=== PATIENT | female | born 1960 | race Caucasian/White ===

== ENCOUNTER 2022-12-29 15:37 | Inpatient (IN) | payer MEDICARE, MEDICAID ==
[~2022-12-29] VITALS: Ht 162.5 cm; Wt 101.9 kg
[2022-12-29 16:14] LABS: BASOPHILS # (AUTO) 0.1 10^3/uL (0.0-0.1); BASOPHILS % (AUTO) 0 % (0-10); EOSINOPHILS % (AUTO) 0 % (0-10); HEMATOCRIT 36 % (35-52); HEMOGLOBIN 11.8 g/dL (11.5-16.0); LYMPHOCYTES # (AUTO) 1.6 10^3/uL (1.0-4.0); LYMPHOCYTES % (AUTO) 8 % (12-44); MEAN CORPUSCULAR HEMOGLOBIN 29 pg (25-34); MEAN CORPUSCULAR HGB CONC 33 g/dL (32-36); MEAN CORPUSCULAR VOLUME 89 fL (80-99); MEAN PLATELET VOLUME 9.6 fL (9.0-12.2); MONOCYTES # (AUTO) 1.5 10^3/uL (0.0-1.0); MONOCYTES % (AUTO) 7 % (0-12); NEUTROPHILS # (AUTO) 17.7 10^3/uL (1.8-7.8); NEUTROPHILS % (AUTO) 85 % (42-75); PLATELET COUNT 248 10^3/uL (130-400)
--- NOTE | 2022-12-29 16:17 | ED General ---
General Chief Complaint: - Reproductive Stated Complaint: UNABLE TO URINATE Nursing Triage Note: PT TO RM 10 PT CO OF FEVERS LAST PM, PT STATES HAS NOT VOIDED SINCE 0730 THIS AM. Source of Information: Patient Exam Limitations: No Limitations History of Present Illness Date Seen by Provider: Dec 29, 2022 Time Seen by Provider: 16:05 Initial Comments This 62 year old woman presents to the ER with primary complaint of not being able to void since this morning. She is noted to have a distended and tender abdomen. She states this sometimes happens when "my lupus flares up." She has experienced chills with no fever. She has recently moved to the area and her care providers are in [place]. Shortly after assessment she is noted to have O2 sat at 88% on room air. She normally uses O2 at 2 lpm at night for TONY but does not require it during the day. Bladder scan revealed greater than 550 ml of retained urine. Allergies and Home Medications Allergies Coded Allergies: Penicillins (Verified Allergy, Unknown, 12/29/22) Sulfa (Sulfonamide Antibiotics) (Verified Allergy, Unknown, 12/29/22) morphine (Verified Allergy, Unknown, 12/29/22) Patient Home Medication List Home Medication List Reviewed: Yes Acetaminophen (Tylenol Extra Strength) 500 Mg Tablet, 1,000 MG PO Q8H PRN for PAIN-MILD (1-4), (Reported) Entered as Reported by: CARLOS PITTMAN on 12/30/22 1205 Last Action: Held Amitriptyline HCl (Amitriptyline HCl) 25 Mg Tablet, 25 MG PO HS, (Reported) Entered as Reported by: CARLOS PITTMAN on 12/30/22 1152 Last Action: Continued Atorvastatin Calcium (Atorvastatin Calcium) 20 Mg Tablet, 20 MG PO HS, (Reported) Entered as Reported by: CARLOS PITTMAN on 12/30/22 1151 Last Action: Continued Brinzolamide/Brimonidine Tart (Simbrinza 1%-0.2% Eye Drop) 1 %-0.2 % Drops.susp, 1 DROP OU BID, (Reported) Entered as Reported by: CARLOS PITTMAN on 12/30/22 1151 Last Action: Converted Cefdinir (Cefdinir) 300 Mg Capsule, 300 MG PO BID Prescribed by: ARMINDA VIDALES on 12/31/22 1119 Chromium/Herbal Complex No.238 (Green Tea Caplet) 250 Mcg-775 Mg Tablet, 1 EACH PO DAILY, (Reported) Entered as Reported by: CARLOS PITTMAN on 12/30/22 120 Last Action: Held Dapagliflozin Propanediol (Farxiga) 5 Mg Tablet, 5 MG PO DAILY, (Reported) Entered as Reported by: CARLOS PITTMAN on 12/30/22 115 Last Action: Held Dexlansoprazole (Dexlansoprazole Dr) 60 Mg Cap.dr.bp, 60 MG PO DAILY, (Reported) Entered as Reported by: CARLOS PITTMAN on 12/30/221150 Last Action: Converted Docusate Sodium (Stool Softener) 100 Mg Tablet, 200 MG PO DAILY PRN for CONSTIPATION-1ST LINE, (Reported) Entered as Reported by: CARLOS PITTMAN on 12/30/22 120 Last Action: Held Doxycycline Hyclate (Doxycycline Hyclate) 100 Mg Capsule, 100 MG PO BID Prescribed by: ARMINDA VIDALES on 12/31/22 111 Dulaglutide (Trulicity) 3 Mg/0.5 Ml Pen.injctr, 3 MG SQ FRIDAY, (Reported) Entered as Reported by: CARLOS PITTMAN on 12/30/22 114 Last Action: Held Estradiol (Estradiol) 0.01 % Cream.appl, 1 APPFUL PV HS, (Reported) Entered as Reported by: CARLOS PITTMAN on 12/30/221150 Last Action: Continued Fluticasone Propionate (Fluticasone Propionate) 50 Mcg/Actuation Irwin.susp, 1 SPRAY NSEACH DAILY PRN for CONGESTION, (Reported) Entered as Reported by: CARLOS PITTMAN on 12/30/22 115 Last Action: Held Furosemide (Furosemide) 40 Mg Tablet, 40 MG PO DAILY, (Reported) Entered as Reported by: CAROLS PITTMAN on 12/30/22 115 Last Action: Held Gabapentin (Neurontin) 300 Mg Capsule, 300 MG PO DAILY, (Reported) Entered as Reported by: CARLOS PITTMAN on 12/30/22 114 Last Action: Continued Gabapentin (Neurontin) 300 Mg Capsule, 600 MG PO HS, (Reported) Entered as Reported by: CARLOS PITTMAN on 12/30/22 114 Last Action: Continued Hydrocodone/Acetaminophen (Hydrocodone-Acetamin 10-325 mg) 10 Mg-325 Mg Tablet, 1 EA PO TID PRN for PAIN-MODERATE (5-7), (Reported) Entered as Reported by: CARLOS PITTMAN on 12/30/22 114 Last Action: Held Hydroxychloroquine Sulfate (Hydroxychloroquine Sulfate) 200 Mg Tablet, 200 MG PO DAILY, (Reported) Entered as Reported by: CARLOS PITTMAN on 12/30/221150 Last Action: Held Ketorolac Tromethamine (Ketorolac Tromethamine) 10 Mg Tablet, 10 MG PO DAILY PRN for PAIN, (Reported) Entered as Reported by: CARLOS PITTMAN on 12/30/221150 Last Action: Held Lactobacillus Acidophilus (Probiotic) 10 Billion Cell Capsule, 1 EACH PO DAILY, (Reported) Entered as Reported by: CARLOS PITTMAN on 12/30/221202 Last Action: Held Latanoprost (Xalatan) 0.005 % Drops, 1 DROP OU DAILY, (Reported) Entered as Reported by: CARLOS PITTMAN on 12/30/221150 Last Action: Continued Linaclotide (Linzess) 72 Mcg Capsule, 72 MG PO DAILY, (Reported) Entered as Reported by: CARLOS PITTMAN on 12/30/221150 Last Action: Converted Metformin HCl (Metformin HCl ER) 500 Mg Tab.er.24, 500 MG PO HS, (Reported) Entered as Reported by: CARLOS PITTMAN on 12/30/221150 Last Action: Held Multivitamin (Multivitamin) 1 Each Tablet, 1 EACH PO DAILY, (Reported) Entered as Reported by: CARLOS PITTMAN on 12/30/22 120 Last Action: Held Nifedipine (Nifedipine ER) 60 Mg Tablet.er, 60 MG PO DAILY, (Reported) Entered as Reported by: CARLOS PITTMAN on 12/30/221150 Last Action: Converted Omeprazole (Omeprazole) 20 Mg Tablet.dr, 20 MG PO HS, (Reported) Entered as Reported by: CARLOS PITTMAN on 12/30/22 120 Last Action: Held Vibegron (Gemtesa) 75 Mg Tablet, 75 MG PO DAILY, (Reported) Entered as Reported by: CARLOS PITTMAN on 12/30/221152 Last Action: Held Review of Systems Review of Systems Constitutional: see HPI EENTM: no symptoms reported Respiratory: see HPI Cardiovascular: no symptoms reported Gastrointestinal: see HPI Genitourinary: no symptoms reported : No Musculoskeletal: no symptoms reported Skin: no symptoms reported Psychiatric/Neurological: No Symptoms Reported Hematologic/Lymphatic: No Symptoms Reported Immunological/Allergic: no symptoms reported Past Ryxfozp-Ubhewk-Zmlazr Hx Patient Social History Tobacco Use?: No Smoking Status: Former Smoker Substance use?: No Alcohol Use?: No Pt feels they are or have been: No Immunizations Up To Date Influenza Vaccine Up-to-Date: No; Not Current First/Initial COVID19 Vaccinat: YES Second COVID19 Vaccination Herbie: YES Third COVID19 Vaccination Date: YES Past Medical History Surgery/Hospitalization HX: LUPUS, IBS, FREQUENT UTI, HYST, R TKR Surgeries: Yes Abdominal (ectopic ), Appendectomy, Gallbladder, Hysterectomy, Joint Replacement (knee) Respiratory: Yes Sleep Apnea Cardiac: No Neurological: No : No Reproductive Disorders: No Genitourinary: Yes Renal Failure (CKD) Gastrointestinal: Yes Irritable Bowel Musculoskeletal: Yes Degenerate Disk Disease, Chronic Back Pain Endocrine: Yes Diabetes, Non-Insulin dep, Lupus HEENT: No Cancer: No Psychosocial: No Physical Exam Vital Signs Vital Signs - First Documented 12/29/22 12/29/22 15:45 17:00 Temp 36.3 Pulse 97 Resp 16 B/P (MAP) 122/73 (89) Pulse Ox 94 O2 Delivery Nasal Cannula O2 Flow Rate 2.00 Capillary Refill : Less Than 3 Seconds Height, Weight, BMI Height: '" Weight: lbs. oz. kg; 38.00 BMI Method: General Appearance: WD/WN, Mild Distress, Obese HEENT: PERRL/EOMI, Normal ENT Inspection Neck: Normal Inspection Respiratory: Lungs Clear, No Accessory Muscle Use, No Respiratory Distress, Decreased Breath Sounds Cardiovascular: Regular Rate, Rhythm, No Edema, No Murmur Gastrointestinal: Normal Bowel Sounds, Soft, Distended, Tenderness (upper abdomen) Extremity: Normal Inspection, No Pedal Edema Neurologic/Psychiatric: Alert, Oriented x3, No Motor/Sensory Deficits, Normal Mood/Affect Skin: Normal Color, Warm/Dry Focused Exam Lactate Level 12/29/22 18:10: Lactic Acid Level 1.01 Lactic Acid Level Laboratory Tests Test 12/29/22 18:10 Lactic Acid Level 1.01 MMOL/L (0.50-2.00) Progress/Results/Core Measures Suspected Sepsis SIRS Temperature: Pulse: 97 Respiratory Rate: 16 Laboratory Tests 12/29/22 16:00: White Blood Count 21.0H Blood Pressure 122 /73 Mean: 89 12/29/22 18:10: Lactic Acid Level 1.01 Laboratory Tests 12/29/22 16:00: Creatinine 1.99H, INR Comment 1.1, Platelet Count 248, Total Bilirubin 0.8 Results/Orders Lab Results Laboratory Tests Test 12/29/22 16:00 12/29/22 16:25 12/29/22 18:10 Range/Units White Blood Count 21.0 H 4.3-11.0 10^3/uL Red Blood Count 4.10 3.80-5.11 10^6/uL Hemoglobin 11.8 11.5-16.0 g/dL Hematocrit 36 35-52 % Mean Corpuscular Volume 89 80-99 fL Mean Corpuscular Hemoglobin 29 25-34 pg Mean Corpuscular Hemoglobin Concent 33 32-36 g/dL Red Cell Distribution Width 13.5 10.0-14.5 % Platelet Count 248 130-400 10^3/uL Mean Platelet Volume 9.6 9.0-12.2 fL Immature Granulocyte % (Auto) 1 % Neutrophils (%) (Auto) 85 H 42-75 % Lymphocytes (%) (Auto) 8 L 12-44 % Monocytes (%) (Auto) 7 0-12 % Eosinophils (%) (Auto) 0 0-10 % Basophils (%) (Auto) 0 0-10 % Neutrophils # (Auto) 17.7 H 1.8-7.8 10^3/uL Lymphocytes # (Auto) 1.6 1.0-4.0 10^3/uL Monocytes # (Auto) 1.5 H 0.0-1.0 10^3/uL Eosinophils # (Auto) 0.0 0.0-0.3 10^3/uL Basophils # (Auto) 0.1 0.0-0.1 10^3/uL Immature Granulocyte # (Auto) 0.1 0.0-0.1 10^3/uL Neutrophils % (Manual) 80 % Lymphocytes % (Manual) 11 % Monocytes % (Manual) 9 % Blood Morphology Comment NORMAL Prothrombin Time 14.2 12.2-14.7 SEC INR Comment 1.1 0.8-1.4 Activated Partial Thromboplast Time 30 24-35 SEC Sodium Level 139 135-145 MMOL/L Potassium Level 3.5 L 3.6-5.0 MMOL/L Chloride Level 101 98-107 MMOL/L Carbon Dioxide Level 26 21-32 MMOL/L Anion Gap 12 5-14 MMOL/L Blood Urea Nitrogen 26 H 7-18 MG/DL Creatinine 1.99 H 0.60-1.30 MG/DL Estimat Glomerular Filtration Rate 28 BUN/Creatinine Ratio 13 Glucose Level 124 H 70-105 MG/DL Calcium Level 9.1 8.5-10.1 MG/DL Corrected Calcium 8.9 8.5-10.1 MG/DL Total Bilirubin 0.8 0.1-1.0 MG/DL Aspartate Amino Transf (AST/SGOT) 19 5-34 U/L Alanine Aminotransferase (ALT/SGPT) 19 0-55 U/L Alkaline Phosphatase 74 40-136 U/L C-Reactive Protein High Sensitivity 6.62 H 0.00-0.50 MG/DL Total Protein 7.7 6.4-8.2 GM/DL Albumin 4.3 3.2-4.5 GM/DL Lipase 14 8-78 U/L Urine Color YELLOW Urine Clarity CLEAR Urine pH 6.0 5-9 Urine Specific [place] <=1.005 1.016-1.022 Urine Protein NEGATIVE NEGATIVE Urine Glucose (UA) 3+ H NEGATIVE Urine Ketones NEGATIVE NEGATIVE Urine Nitrite NEGATIVE NEGATIVE Urine Bilirubin NEGATIVE NEGATIVE Urine Urobilinogen 0.2 < = 1.0 MG/DL Urine Leukocyte Esterase NEGATIVE NEGATIVE Urine RBC (Auto) NEGATIVE NEGATIVE Urine RBC NONE /HPF Urine WBC NONE /HPF Urine Crystals NONE /LPF Urine Bacteria NEGATIVE /HPF Urine Casts NONE /LPF Urine Mucus NEGATIVE /LPF Urine Culture Indicated NO Lactic Acid Level 1.01 0.50-2.00 MMOL/L Micro Results Microbiology 12/29/22 Blood Culture - Preliminary, Resulted No growth My Orders Orders - SANCHEZ FREY MD Cbc With Automated Diff (12/29/22 16:01) Comprehensive Metabolic Panel (12/29/22 16:01) Hs C Reactive Protein (12/29/22 16:01) Ua Culture If Indicated (12/29/22 16:01) Ed Iv/Invasive Line Start (12/29/22 16:01) Lipase (12/29/22 16:15) Garcia Cath (12/29/22 16:15) Manual Differential (12/29/22 16:00) Ct Chest/Abdomen/Pelvis Wo (12/29/22 17:07) Blood Culture (12/29/22 18:00) Sputum Culture (12/29/22 18:00) Protime With Inr (12/29/22 18:00) Partial Thromboplastin Time (12/29/22 18:00) Vital Signs Adult Sepsis Patie Q15M (12/29/22 18:00) O2 (12/29/22 18:00) Remove Rings In Anticipation O (12/29/22 18:00) Lactic Acid Analyzer (12/29/22 18:00) Ceftriaxone Pre-Mix (Rocephin Pre-Mix) (12/29/22 18:00) Vital Signs/I&O 12/29/22 12/29/22 15:45 17:00 Temp 36.3 Pulse 97 Resp 16 B/P (MAP) 122/73 (89) Pulse Ox 94 95 O2 Delivery Nasal Cannula O2 Flow Rate 2.00 Capillary Refill : Less Than 3 Seconds Blood Pressure Mean: 89 Progress Note : Progress Note Garcia catheter was placed which relieved urinary retention. Labs were obtained, reviewed and interpreted by me. She had leukocytosis of 21,000 and CRP of 6. Further work-up was sought. CT of the chest, abdomen and pelvis was obtained to further evaluate her pain and hypoxia. CT revealed multilobar right-sided pneumonia. Lactic acid and blood cultures were obtained. Antibiotic therapy with Rocephin was administered. Case was discussed with the hospitalist, Dr. Kevin, and patient was admitted. I discussed CODE STATUS with patient, and she elected a DNR. Diagnostic Imaging Diagonstic Imaging: CT Plain Films/CT/US/NM/MRI: chest, abdomen, pelvis Comments CT chest, abdomen and pelvis was reviewed and interpreted by me. There was obvious pneumonia in the right lung. No bowel obstruction was identified. No other acute abnormalities were appreciated. Radiologist's report was also reviewed as below: NAME: FRANCHESKA HEREDIA [facility] REC#: [id number] PT STATUS: REG ER : 1960 PHYSICIAN: SANCHEZ FREY MD ADMIT DATE: 06/04/23/ER Signed Date of Exam:12/29/22 CT CHEST/ABDOMEN/PELVIS WO Procedure: CT chest, abdomen, and pelvis without contrast. Technique: Multiple contiguous axial images were obtained through the chest, abdomen, and pelvis without the use of intravenous contrast. Auto Exposure Controls were utilized during the CT exam to meet ALARA standards for radiation dose reduction. Date: December 29, 2022. Indication: 62-year-old female, fever. Not voided. Abdominal distention. Chest pain. Shortness of breath. Comparison: None. Findings: There is a 5 mm subcutaneous solid right upper lobe pulmonary nodule on axial image 19. There is patchy multifocal airspace consolidation in the right upper lobe, right middle lobe, and right lower lobe with areas of tree-in-bud type nodularity. There is a 5 mm solid left lower lobe pulmonary nodule on axial image 47. There is an additional 4 mm more inferiorly located left lower lobe pulmonary nodule. There is no identified pneumothorax. There is no pleural effusion. The central airways are patent. The heart is not enlarged. There is no identified pericardial effusion. There is no identified abnormally enlarged mediastinal, hilar, or axillary lymph node meeting CT size criteria for adenopathy. The liver is unremarkable in size and contour. The gallbladder is surgically absent. There is no biliary ductal dilation. There is a small duodenal diverticulum near the duodenal insertion of the common bile duct. There is no biliary ductal dilation. The pancreas is unremarkable. The spleen is normal in size. There is a left adrenal nodule measuring 2.6 cm size on axial image 107 with internal attenuation of 14 Hounsfield units. This is not quite meeting threshold criteria for diagnosis of adenoma. There is also a right adrenal 8 mm nodule on axial image 100 with internal attenuation of 1 Hounsfield unit which is compatible with adrenal adenoma. Noncontrast evaluation of the renal parenchyma is unremarkable. The urinary collecting systems are not distended. There is no renal or ureteral stone. There is a Garcia catheter in the urinary bladder which is collapsed and otherwise not well evaluated. The uterus is not seen and may be surgically absent. There is diverticulosis without evidence of acute diverticulitis. The intestinal tract is not distended. There is no evidence of acute appendicitis. There is no free intraperitoneal air. There is no drainable fluid collection. There is no free fluid in the abdomen or pelvis. There are atherosclerotic calcifications. There is no identified abnormally enlarged lymph node in the abdomen or pelvis which meets CT size criteria for adenopathy. There are multilevel degenerative changes of the spine. There is no identified acute bony abnormality. Impression: 1. Multifocal airspace consolidation in the right lung most likely reflecting multifocal pneumonia. 2. Subcentimeter right upper lobe and left lower lobe pulmonary nodules measuring up to approximately 5 mm in size. Recommend followup CT chest without contrast in 6 months to evaluate for stability. 3. No identified acute abnormality in the abdomen or pelvis. Dictated by: Dictated on workstation # [id number] Dict: 12/29/221735 Trans: 12/29/221749 CV [id number] Interpreted by: VLADIMIR SINCLAIR MD Electronically signed by: VLADIMIR SINCLAIR MD 12/29/221749 Departure Communication (Admissions) Time/Spoke to Admitting Phy: 18:10 Dr. Kevin Impression Primary Impression: Pneumonia Qualified Codes: J18.9 - Pneumonia, unspecified organism Additional Impressions: Hypoxia Urinary retention Disposition: ADMITTED INPATIENT Condition: Stable Admissions Decision to Admit Reason: Admit from ER (General) Decision to Admit/Date: Dec 29, 2022 Time/Decision to Admit Time: 18:10 Departure-Patient Inst. Referrals: NO,LOCAL PHYSICIAN (PCP/Family) Primary Care Physician Scripts Doxycycline Hyclate (Doxycycline Hyclate) 100 Mg Capsule 100 MG PO BID for 5 Days, #10 CAP Prov: ARMINDA VIDALES MD 12/31/22 Cefdinir (Cefdinir) 300 Mg Capsule 300 MG PO BID for 5 Days, #10 CAP Prov: ARMINDA VIDALES MD 12/31/22 SANCHEZ FREY MD Dec 29, 2022 16:17
[2022-12-29 16:23] LABS: ALBUMIN 4.3 GM/DL (3.2-4.5); POTASSIUM 3.5 MMOL/L (3.6-5.0)
[2022-12-29 16:24] LABS: CALCIUM 9.1 MG/DL (8.5-10.1)
[2022-12-29 16:26] LABS: TOTAL PROTEIN 7.7 GM/DL (6.4-8.2)
[2022-12-29 16:27] LABS: BILIRUBIN,TOTAL 0.8 MG/DL (0.1-1.0)
[2022-12-29 16:29] LABS: CREATININE SERUM 1.99 MG/DL (0.60-1.30)
[2022-12-29 16:38] LABS: BILIRUBIN,URINE NEGATIVE (NEGATIVE); CLARITY,URINE CLEAR; COLOR,URINE YELLOW; GLUCOSE, URINE (UA) 3+ (NEGATIVE); KETONES,URINE NEGATIVE (NEGATIVE); LEUKOCYTE ESTERASE ,URINE NEGATIVE (NEGATIVE); NITRITE,URINE NEGATIVE (NEGATIVE); PROTEIN,URINE NEGATIVE (NEGATIVE)
[2022-12-29 16:42] LABS: LYMPHOCYTES % (MANUAL) 11 %; MONOCYTES % (MANUAL) 9 %; NEUTROPHILS % (MANUAL) 80 %; RBC MORPH NORMAL
[2022-12-29 16:55] LABS: BACTERIA,URINE NEGATIVE /HPF
--- NOTE | 2022-12-29 17:46 | Diagnostic Imaging Report ---
Procedure: CT chest, abdomen, and pelvis without contrast. Technique: Multiple contiguous axial images were obtained through the chest, abdomen, and pelvis without the use of intravenous contrast. Auto Exposure Controls were utilized during the CT exam to meet ALARA standards for radiation dose reduction. Date: December 29, 2022. Indication: 62-year-old female, fever. Not voided. Abdominal distention. Chest pain. Shortness of breath. Comparison: None. Findings: There is a 5 mm subcutaneous solid right upper lobe pulmonary nodule on axial image 19. There is patchy multifocal airspace consolidation in the right upper lobe, right middle lobe, and right lower lobe with areas of tree-in-bud type nodularity. There is a 5 mm solid left lower lobe pulmonary nodule on axial image 47. There is an additional 4 mm more inferiorly located left lower lobe pulmonary nodule. There is no identified pneumothorax. There is no pleural effusion. The central airways are patent. The heart is not enlarged. There is no identified pericardial effusion. There is no identified abnormally enlarged mediastinal, hilar, or axillary lymph node meeting CT size criteria for adenopathy. The liver is unremarkable in size and contour. The gallbladder is surgically absent. There is no biliary ductal dilation. There is a small duodenal diverticulum near the duodenal insertion of the common bile duct. There is no biliary ductal dilation. The pancreas is unremarkable. The spleen is normal in size. There is a left adrenal nodule measuring 2.6 cm size on axial image 107 with internal attenuation of 14 Hounsfield units. This is not quite meeting threshold criteria for diagnosis of adenoma. There is also a right adrenal 8 mm nodule on axial image 100 with internal attenuation of 1 Hounsfield unit which is compatible with adrenal adenoma. Noncontrast evaluation of the renal parenchyma is unremarkable. The urinary collecting systems are not distended. There is no renal or ureteral stone. There is a Garcia catheter in the urinary bladder which is collapsed and otherwise not well evaluated. The uterus is not seen and may be surgically absent. There is diverticulosis without evidence of acute diverticulitis. The intestinal tract is not distended. There is no evidence of acute appendicitis. There is no free intraperitoneal air. There is no drainable fluid collection. There is no free fluid in the abdomen or pelvis. There are atherosclerotic calcifications. There is no identified abnormally enlarged lymph node in the abdomen or pelvis which meets CT size criteria for adenopathy. There are multilevel degenerative changes of the spine. There is no identified acute bony abnormality. Impression: 1. Multifocal airspace consolidation in the right lung most likely reflecting multifocal pneumonia. 2. Subcentimeter right upper lobe and left lower lobe pulmonary nodules measuring up to approximately 5 mm in size. Recommend followup CT chest without contrast in 6 months to evaluate for stability. 3. No identified acute abnormality in the abdomen or pelvis. Dictated by: Dictated on workstation # [id number]
[2022-12-29] MEDS ORDERED: cefTRIAXone PRE-MIX 50 ML IV STA (18:00)
[2022-12-29 18:14] LABS: INR 1.1 (0.8-1.4); PROTHROMBIN TIME PATIENT 14.2 SEC (12.2-14.7)
[2022-12-29] MEDS ORDERED: LACTATED RINGERS 1,000 ML IV ONE (19:33)
[2022-12-29 19:39] VITALS: BP 159/85
[2022-12-29 19:42] VITALS: BP 159/85
[2022-12-29] MEDS ORDERED: RT-ALBUTEROL/IPRATROPIUM 3 ML (DUONEB) VIAL INH PRN (20:00)
[2022-12-29] MEDS ORDERED: AZITHROMYCIN 500 MG/NS 250 ML IVPB IV ONE ×2 (20:45)
[2022-12-29] MEDS ORDERED: ONDANSETRON 4 MG/2 ML (SDV) Z0FRAN IV PRN (20:45)
[2022-12-29] MEDS: ENOXAPARIN 40 MG/0.4 ML (LOVENOX) SYR SC SCH (21:04)
[2022-12-29] MEDS: LACTATED RINGERS 1,000 ML IV SCH (21:04)
[2022-12-30 00:24] VITALS: BP 119/69
[2022-12-30 04:20] VITALS: BP 133/60
[2022-12-30] MEDS: LACTATED RINGERS 1,000 ML IV SCH ×3 (04:47→22:16)
[2022-12-30 08:02] VITALS: BP 135/74
[2022-12-30 08:48] LABS: BASOPHILS % (AUTO) 0 % (0-10); EOSINOPHILS # (AUTO) 0.2 10^3/uL (0.0-0.3); EOSINOPHILS % (AUTO) 1 % (0-10); HEMATOCRIT 35 % (35-52); LYMPHOCYTES # (AUTO) 1.5 10^3/uL (1.0-4.0); LYMPHOCYTES % (AUTO) 14 % (12-44); MEAN CORPUSCULAR HEMOGLOBIN 29 pg (25-34); MEAN CORPUSCULAR HGB CONC 32 g/dL (32-36); MEAN CORPUSCULAR VOLUME 90 fL (80-99); MEAN PLATELET VOLUME 9.8 fL (9.0-12.2); MONOCYTES # (AUTO) 0.6 10^3/uL (0.0-1.0); MONOCYTES % (AUTO) 6 % (0-12); NEUTROPHILS # (AUTO) 8.1 10^3/uL (1.8-7.8); NEUTROPHILS % (AUTO) 78 % (42-75); PLATELET COUNT 192 10^3/uL (130-400); WHITE BLOOD COUNT 10.4 10^3/uL (4.3-11.0)
[2022-12-30 09:03] LABS: CALCIUM 8.7 MG/DL (8.5-10.1); CREATININE SERUM 1.66 MG/DL (0.60-1.30); POTASSIUM 3.8 MMOL/L (3.6-5.0)
[2022-12-30] MEDS: HYDROXYCHLOROQUINE 200 MG (PLAQUENIL) TAB PO SCH (09:11)
[2022-12-30] MEDS ORDERED: GABA300C PO ×2 (11:42→11:43)
[2022-12-30] MEDS ORDERED: HYDR-3820 PO (11:42)
[2022-12-30] MEDS ORDERED: DULA3PEN SQ (11:44)
[2022-12-30] MEDS ORDERED: ESTR42.511 PV (11:51)
[2022-12-30] MEDS ORDERED: FURO40TA4 PO (11:51)
[2022-12-30] MEDS ORDERED: FLUT16SP22 NSEACH (11:51)
[2022-12-30] MEDS ORDERED: DEXL60CA6 PO (11:51)
[2022-12-30] MEDS ORDERED: BRIN8DRO2 OU (11:51)
[2022-12-30] MEDS ORDERED: DAPA5TAB PO (11:51)
[2022-12-30] MEDS ORDERED: LINA72CA PO (11:51)
[2022-12-30] MEDS ORDERED: ATOR20TA66 PO (11:51)
[2022-12-30] MEDS ORDERED: KETO10TA PO (11:51)
[2022-12-30] MEDS ORDERED: NFD60TCR PO (11:51)
[2022-12-30] MEDS ORDERED: LATA2.5D19 OU (11:51)
[2022-12-30] MEDS ORDERED: HYDR200T46 PO (11:51)
[2022-12-30] MEDS ORDERED: METF-478 PO (11:51)
[2022-12-30] MEDS ORDERED: AMIT25TA9 PO (11:52)
[2022-12-30] MEDS ORDERED: VIBE75TA PO (11:53)
[2022-12-30] MEDS ORDERED: OMEP20TA56 PO (12:02)
[2022-12-30] MEDS ORDERED: LACT1CAP62 PO (12:03)
[2022-12-30] MEDS ORDERED: MULT-1136 PO (12:04)
[2022-12-30] MEDS ORDERED: DOCU100T7 PO (12:04)
[2022-12-30] MEDS ORDERED: ACET-2267 PO (12:05)
[2022-12-30] MEDS ORDERED: CHRO1TAB8 PO (12:05)
[2022-12-30 12:10] VITALS: BP 190/75
[2022-12-30] MEDS ORDERED: NIFEdipine ER 30 MG (PROCARDIA XL) TAB PO NR (12:45)
[2022-12-30] MEDS ORDERED: hydrALAZINE (APESOLINE) 20 MG/ML VIAL IV PRN (12:45)
--- NOTE | 2022-12-30 15:39 | History & Physical-Hospitalist ---
History of Present Illness HPI/Chief Complaint Caesar Gross is a 62 year old female with PMH HTN, T2DM, HLD, neuropathy, obesity, lupus, who presented with fevers. She also reports chills. She has been short of breath. She denies cough or sputum production. She reports right sided chest pain. She denies abdominal pain, nausea, vomiting, and diarrhea. She did have urinary retention. She was worried this was a flare of her lupus. She takes Hydroxychloroquine. She has not had a lupus flare since the . 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 Source: patient Exam Limitations: no limitations Date Seen 12/30/22 Time Seen by a Provider: 10:50 Attending Physician No,Local Physician PCP Admitting Physician: Marquita Kevin MD Attending Physician: Arminda Vidales MD Referring Physician Date of Admission Dec 29, 2022 at 18:10 Home Medications & Allergies Home Medications Reviewed patient Home Medication Reconciliation performed by pharmacy medication reconciliations optics test technician and/or nursing. Patients Allergies have been reviewed. Allergies Allergies Coded Allergies Penicillins (Verified Allergy, Unknown, 12/29/22) Sulfa (Sulfonamide Antibiotics) (Verified Allergy, Unknown, 12/29/22) morphine (Verified Allergy, Unknown, 12/29/22) Past Vfoyklb-Dwyxfr-Tnaflh Hx Patient Social History Tobacco Use?: No Smoking Status: Former Smoker Use of E-Cig and/or Vaping dev: No Substance use?: No Alcohol Use?: No Pt feels they are or have been: No Immunizations Up To Date First/Initial COVID19 Vaccinat: YES Second COVID19 Vaccination Herbie: YES Tetanus Booster (TDap): Less Than 5 Years Hepatitis A: No Hepatitis B: No Current Status status: No status: No Advance Directives: No Communicates: Verbally Primary Language: Argentine Preferred Spoken Language: Argentine Is interpretation needed?: No Sensory deficits: Vision impairment Implanted or Applied Medical D: Orthopedic hardware Past Medical History High Cholesterol, Hypertension Diabetes, Non-Insulin dep Family Medical History No Pertinent Family Hx Review of Systems Constitutional: no symptoms reported Respiratory: short of breath Cardiovascular: chest pain Gastrointestinal: no symptoms reported Physical Exam Physical Exam Vital Signs Vital Signs - First Documented 12/29/22 12/29/22 15:45 17:00 Temp 36.3 Pulse 97 Resp 16 B/P (MAP) 122/73 (89) Pulse Ox 94 O2 Delivery Nasal Cannula O2 Flow Rate 2.00 Capillary Refill : Less Than 3 Seconds Height, Weight, BMI Height: '" Weight: lbs. oz. kg; 38.58 BMI Method: General Appearance: No Apparent Distress, Obese HEENT: PERRL/EOMI, Pharynx Normal Neck: Normal Inspection, Supple Respiratory: No Chest Non Tender; Lungs Clear, Normal Breath Sounds, No Respiratory Distress Cardiovascular: Regular Rate, Rhythm, No Murmur Gastrointestinal: Normal Bowel Sounds, Non Tender, Soft Extremity: Normal Inspection, Non Tender, Pedal Edema Neurologic/Psychiatric: Alert, Oriented x3, No Motor/Sensory Deficits, Normal Mood/Affect Skin: Normal Color, Warm/Dry Results Results/Procedures Labs Laboratory Tests 12/29/22 16:00 12/30/22 08:42 Patient resulted labs reviewed. Imaging: Reviewed Imaging Report Assessment/Plan Admission Diagnosis Sepsis due to pneumonia Admission Status: Inpatient Order (span 2 midnights) Reason for Inpatient Admission: IV antibiotics Assessment and Plan Sepsis due to pneumonia Acute on chronic respiratory failure with hypoxia BRITTNY Rocephin and Azithromycin Requiring 2 L nasal cannula, normally only uses at night IV fluids HTN T2DM HLD TONY Obesity Lupus Continue home meds as able Diagnosis/Problems Diagnosis/Problems (1) Sepsis due to pneumonia Status: Acute (2) BRITTNY (acute kidney injury) Status: Acute (3) HTN (hypertension) Status: Acute (4) T2DM (type 2 diabetes mellitus) Status: Chronic Qualifiers: Diabetes mellitus mcc insulin use: without mcc use (5) HLD (hyperlipidemia) Status: Chronic (6) Obesity Status: Chronic (7) TONY (obstructive sleep apnea) Status: Chronic (8) Lupus Status: Chronic ARMINDA VIDALES MD Dec 30, 2022 15:39
[2022-12-30 15:40] VITALS: BP 174/84
[2022-12-30] MEDS ORDERED: LACTULOSE SYRUP 10GM/15ML (ENULOSE) 30ML UDC PO PRN (17:45)
[2022-12-30] MEDS ORDERED: ONDANSETRON 4 MG/2 ML (SDV) Z0FRAN IV PRN (17:45)
[2022-12-30] MEDS ORDERED: MILK OF MAGNESIA 400 MG/5 ML 30 ML UDC PO PRN (17:45)
[2022-12-30] MEDS ORDERED: polyethylene glycoL POWDER 17 GM (MIRALAX) PACK PO PRN (17:45)
[2022-12-30] MEDS ORDERED: BISACODYL 10 MG SUPP (DULCOLAX) PR PRN (17:45)
[2022-12-30] MEDS ORDERED: CALCIUM CARBONATE 500 MG (TUMS) TAB.CHEW PO PRN (17:45)
[2022-12-30] MEDS ORDERED: diphenhydrAMINE 50 MG/ML INJ (BENADRYL) IVP PRN (17:45)
[2022-12-30] MEDS ORDERED: ONDANSETRON 4 MG (ZOFRAN) ORAL DISSOLVE TAB PO PRN (17:45)
[2022-12-30] MEDS ORDERED: MELATONIN 3 MG TABLET PO PRN (17:45)
[2022-12-30] MEDS ORDERED: ACETAMINOPHEN 325 MG TABLET PO PRN (17:45)
[2022-12-30] MEDS ORDERED: NS IV 500 ML 500 ML IV PRN (17:45)
[2022-12-30] MEDS ORDERED: ANTACID SUSP 30 ML UDC (MYLANTA) PO PRN (17:45)
[2022-12-30] MEDS ORDERED: diphenhydrAMINE 25 MG TAB (BENADRYL) PO PRN (17:45)
[2022-12-30] MEDS ORDERED: cefTRIAXone 1 GM/NS 50 ML IVPB IV SCH ×2 (18:00)
[2022-12-30 19:29] VITALS: BP 170/76
[2022-12-30] MEDS ORDERED: GABAPENTIN 300 MG (NEURONTIN) CAP PO SCH (21:00)
[2022-12-30] MEDS ORDERED: ESTRADIOL VAGINAL CREAM 42.5 GM (ESTRACE) VG SCH (21:00)
[2022-12-30] MEDS ORDERED: AZITHROMYCIN 250 MG TAB (ZITHROMAX) PO SCH (21:00)
[2022-12-30] MEDS ORDERED: NON-FORMULARY MEDICATION 1 EA EA (Brinzolamide/Brimonidine Tart (Simbrinza 1%-0.2% Eye Dro OU SCH (21:00)
[2022-12-30] MEDS ORDERED: AMITRIPTYLINE 25 MG (ELAVIL) TAB PO SCH (21:00)
[2022-12-30] MEDS ORDERED: LATANOPROST 0.005% (XALATAN) OPHTH SOLN 2.5 ML OU SCH (21:00)
[2022-12-30] MEDS: ENOXAPARIN 40 MG/0.4 ML (LOVENOX) SYR SC SCH (22:15)
[2022-12-30] MEDS: SENNOSIDES 8.6 MG (SENOKOT) TAB PO SCH (22:16)
[2022-12-30] MEDS: inSUlin ASPART (NovoLOG) 1 UNIT/0.01 ML (CHARGE PER UNIT) SC SCH (22:16)
[2022-12-30] MEDS: DOCUSATE SODIUM 100 MG (COLACE) CAP PO SCH (22:16)
[2022-12-31 00:03] VITALS: BP 129/61
[2022-12-31 04:11] VITALS: BP 119/75
[2022-12-31 05:13] LABS: POTASSIUM 3.9 MMOL/L (3.6-5.0)
[2022-12-31 05:14] LABS: CALCIUM 9.2 MG/DL (8.5-10.1)
[2022-12-31 05:19] LABS: CREATININE SERUM 1.31 MG/DL (0.60-1.30)
[2022-12-31 05:21] LABS: MAGNESIUM 1.8 MG/DL (1.6-2.4)
[2022-12-31] MEDS: inSUlin ASPART (NovoLOG) 1 UNIT/0.01 ML (CHARGE PER UNIT) SC SCH ×2 (05:46→11:38)
[2022-12-31] MEDS ORDERED: MAGNESIUM 1 GM/100 ML IVPB 100 ML IV SCH (06:00)
[2022-12-31] MEDS ORDERED: POTASSIUM BICARB 20 MEQ (EFFER-K) TABLET PO SCH (06:00)
[2022-12-31] MEDS ORDERED: POTASSIUM CL 10MEQ/50ML IVPB 50 ML IV SCH (06:00)
[2022-12-31] MEDS ORDERED: KCL 20 MEQ TAB (K-DUR) PO SCH (06:00)
[2022-12-31] MEDS ORDERED: KCL 20 MEQ TAB (K-DUR) PO ONE (06:00)
[2022-12-31] MEDS: MAGNESIUM 1 GM/100 ML IVPB 100 ML IV SCH ×2 (06:26→08:58)
[2022-12-31 07:45] VITALS: BP 159/73
[2022-12-31] MEDS: LACTATED RINGERS 1,000 ML IV SCH (08:58)
[2022-12-31] MEDS ORDERED: BRIMONIDINE 0.2% (ALPHAGAN) OPHTH SOLN 5 ML BTL OU SCH (09:00)
[2022-12-31] MEDS ORDERED: PANTOPRAZOLE 40 MG (PROTONIX) TAB PO SCH (09:00)
[2022-12-31] MEDS ORDERED: lisINopril 20 MG (PRINIVIL) TABLET PO SCH (09:00)
[2022-12-31] MEDS ORDERED: NIFEdipine ER 30 MG (PROCARDIA XL) TAB PO SCH (09:00)
[2022-12-31] MEDS ORDERED: NON-FORMULARY MEDICATION 1 EA EA (Dexlansoprazole (Dexlansoprazole Dr) 60 MG) PO SCH (09:00)
[2022-12-31] MEDS: HYDROXYCHLOROQUINE 200 MG (PLAQUENIL) TAB PO SCH (09:00)
[2022-12-31] MEDS ORDERED: DORZOLAMIDE 2% 10 ML BTL (TRUSOPT) OU SCH (09:00)
[2022-12-31] MEDS ORDERED: GABAPENTIN 300 MG (NEURONTIN) CAP PO SCH (09:00)
[2022-12-31] MEDS ORDERED: LINACLOTIDE 72 MG PO SCH (09:00)
[2022-12-31] MEDS ORDERED: NON-FORMULARY MEDICATION 1 EA EA (Nifedipine (Nifedipine ER) 60 MG) PO SCH (09:00)
[2022-12-31] MEDS: SENNOSIDES 8.6 MG (SENOKOT) TAB PO SCH (09:02)
[2022-12-31] MEDS: DOCUSATE SODIUM 100 MG (COLACE) CAP PO SCH (09:02)
[2022-12-31] MEDS ORDERED: DOXY100C5 PO (11:19)
[2022-12-31] MEDS ORDERED: CEFD300C3 PO (11:19)
[2022-12-31 12:00] VITALS: BP 159/73
--- NOTE | 2022-12-31 13:04 | Physical Therapy Progress Note ---
Therapy Progress Note Patient dismiss prior to PT availability. MARCELA WU PT Dec 31, 2022 13:04
--- NOTE | 2022-12-31 16:56 | Discharge Summary ---
Discharge Summary Hospital Course Problems/Dx: (1) Sepsis due to pneumonia Status: Acute (2) BRITTNY (acute kidney injury) Status: Acute (3) HTN (hypertension) Status: Acute (4) T2DM (type 2 diabetes mellitus) Status: Chronic Qualifiers: (5) HLD (hyperlipidemia) Status: Chronic (6) Obesity Status: Chronic (7) TONY (obstructive sleep apnea) Status: Chronic (8) Lupus Status: Chronic (9) Pulmonary nodules Status: Acute (10) Adrenal nodule Status: Acute Hospital Course Date of Admission: Dec 29, 2022 at 18:10 Admission Diagnosis : Sepsis due to pneumonia Family Physician/Provider: [facility]Local Physician Date of Discharge: 12/31/22 Discharge Diagnosis: Sepsis due to pneumonia Hospital Course: Caesar Gross is a 62 year old female with PMH HTN, T2DM, TONY on nocturnal oxygen, lupus, obesity, who was admitted with sepsis due to pneumonia. She had a CT which showed multifocal pneumonia. She was treated with IV antibiotics and fluids. She also had an BRITTNY which improved with fluids. She responded well. She was eating and drinking well. She was ambulating. Her CT incidentally showed pulmonary nodules, 4 mm and 5 mm, which will need surveillance. She also had bilateral adrenal nodules. She does not have a primary care physician at this time. She recently moved from [place] to [place]. She was encouraged to establ beau at the [facility] in [place]. She was discharged home in stable condition. She will complete a course of oral antibiotics. Labs and Pending Lab Test: Laboratory Tests 12/30/22 20:28: Glucometer 129H 12/31/22 04:55: Glucometer 125H 12/31/22 04:56: Sodium Level 141, Potassium Level 3.9, Chloride Level 107, Carbon Dioxide Level 27, Anion Gap 7, Blood Urea Nitrogen 15, Creatinine 1.31H, Estimat Glomerular Filtration Rate 45, BUN/Creatinine Ratio 11, Glucose Level 131H, Calcium Level 9.2, Magnesium Level 1.8 12/31/22 11:34: Glucometer 108 Microbiology 12/29/22 Blood Culture - Preliminary, Resulted No growth Home Meds Active Doxycycline Hyclate 100 Mg Capsule 100 Mg PO BID 5 Days Cefdinir 300 Mg Capsule 300 Mg PO BID 5 Days Reported Tylenol Extra Strength (Acetaminophen) 500 Mg Tablet 1,000 Mg PO Q8H PRN Green Tea Caplet (Chromium/Herbal Complex No.238) 250 Mcg-775 Mg Tablet 1 Each PO DAILY Multivitamin 1 Each Tablet 1 Each PO DAILY Stool Softener (Docusate Sodium) 100 Mg Tablet 200 Mg PO DAILY PRN TAKES 2 (100MG) TAB Probiotic (Lactobacillus Acidophilus) 10 Billion Cell Capsule 1 Each PO DAILY Omeprazole 20 Mg Tablet.dr 20 Mg PO HS Gemtesa (Vibegron) 75 Mg Tablet 75 Mg PO DAILY Amitriptyline HCl 25 Mg Tablet 25 Mg PO HS FILLED 04-19-2022 #90/90 DAY SUPPLY Metformin HCl ER (Metformin HCl) 500 Mg Tab.er.24 500 Mg PO HS FILLED 01-31-2022 #180/90 DAY SUPPLY Ketorolac Tromethamine 10 Mg Tablet 10 Mg PO DAILY PRN Fluticasone Propionate 50 Mcg/Actuation [place].susp 1 [place] NSEACH DAILY PRN Dexlansoprazole Dr (Dexlansoprazole) 60 Mg Cap.dr.bp 60 Mg PO DAILY Xalatan (Latanoprost) 0.005 % Drops 1 Drop OU DAILY Linzess (Linaclotide) 72 Mcg Capsule 72 Mg PO DAILY Estradiol 0.01 % Cream.appl 1 Appful PV HS Farxiga (Dapagliflozin Propanediol) 5 Mg Tablet 5 Mg PO DAILY Simbrinza 1%-0.2% Eye Drop (Brinzolamide/Brimonidine Tart) 1 %-0.2 % Drops.susp 1 Drop OU BID Hydroxychloroquine Sulfate 200 Mg Tablet 200 Mg PO DAILY Furosemide 40 Mg Tablet 40 Mg PO DAILY Atorvastatin Calcium 20 Mg Tablet 20 Mg PO HS Nifedipine ER (Nifedipine) 60 Mg Tablet.er 60 Mg PO DAILY Trulicity (Dulaglutide) 3 Mg/0.5 Ml Pen.injctr 3 Mg SQ FRIDAY Neurontin (Gabapentin) 300 Mg Capsule 600 Mg PO HS TAKES 2 (300MG) CAPS Neurontin (Gabapentin) 300 Mg Capsule 300 Mg PO DAILY Hydrocodone-Acetamin 10-325 mg (Hydrocodone/Acetaminophen) 10 Mg-325 Mg Tablet 1 Ea PO TID PRN Assessment/Pt Instructions See instructions Discharge Planning: >30 minutes discharge planning Discharge Instructions Discharge Diet: ADA Diet Discharge Physical Examination Vital Signs Vital Signs Date Time Temp Pulse Resp B/P (MAP) Pulse Ox O2 Delivery O2 Flow Rate FiO2 12/31/22 12:00 36.7 85 16 159/73 92 Nasal Cannula 2.00 General Appearance: No Apparent Distress, Obese Respiratory: Lungs Clear, No Respiratory Distress Cardiovascular: Regular Rate, Rhythm, No Murmur Gastrointestinal: Normal Bowel Sounds, Soft Extremity: Normal Inspection, Pedal Edema Skin: Normal Color, Warm/Dry Neurologic/Psychiatric: Alert, Normal Mood/Affect Allergies: Coded Allergies: Penicillins (Verified Allergy, Unknown, 12/29/22) Sulfa (Sulfonamide Antibiotics) (Verified Allergy, Unknown, 12/29/22) morphine (Verified Allergy, Unknown, 12/29/22) Copy Copies To 1: [facility] [place] Discharge Summary Date of Admission Dec 29, 2022 at 18:10 Date of Discharge Dec 31, 2022 at 12:35 Discharge Date: Dec 31, 2022 Discharge Time: 12:35 Admission Diagnosis Sepsis due to pneumonia Discharge Diagnosis Sepsis due to pneumonia Acute on chronic respiratory failure with hypoxia BRITTNY HTN T2DM HLD TONY Obesity Lupus Pulmonary nodules Adrenal nodules (1) Sepsis due to pneumonia Status: Acute (2) BRITTNY (acute kidney injury) Status: Acute (3) HTN (hypertension) Status: Acute (4) T2DM (type 2 diabetes mellitus) Status: Chronic Qualifiers: (5) HLD (hyperlipidemia) Status: Chronic (6) Obesity Status: Chronic (7) TONY (obstructive sleep apnea) Status: Chronic (8) Lupus Status: Chronic (9) Pulmonary nodules Status: Acute (10) Adrenal nodule Status: Acute ARMINDA VIDALES MD Dec 31, 2022 16:55
== END 2022-12-31 12:35 | disposition home or self-care (01) | DRG 871 ==
LOC: ER 15:40 → 4TH 18:10
PROVIDERS: ADMIT Family Medicine; ATTEND Internal Medicine
DX: A41.9 Sepsis, unspecified organism (principal); J18.9 Pneumonia, unspecified organism; J96.21 Acute and chronic respiratory failure with hypoxia; N17.9 Acute kidney failure, unspecified; G47.33 Obstructive sleep apnea (adult) (pediatric); Z87.891 Personal history of nicotine dependence; K58.9 Irritable bowel syndrome, unspecified; Z96.651 Presence of right artificial knee joint; G89.29 Other chronic pain; M54.9 Dorsalgia, unspecified; R33.9 Retention of urine, unspecified; I10 Essential (primary) hypertension; E66.9 Obesity, unspecified; E11.40 Type 2 diabetes mellitus with diabetic neuropathy, unspecified; E78.00 Pure hypercholesterolemia, unspecified; M32.9 Systemic lupus erythematosus, unspecified; R91.1 Solitary pulmonary nodule; Z68.38 Body mass index [BMI] 38.0-38.9, adult
CPT/HCPCS: 36415; 51702; 71250; 74176; 80048; 80053; 81000; 82947; 83605; 83690; 83735; 85007; 85025; 85027; 85610; 85730; 86141; 87040; 94664; 94760